=== PATIENT | female | born 1945 | race Two or more races ===

== ENCOUNTER 2022-09-28 16:38 | Inpatient (IN) | payer OTHER ==
[~2022-09-28] VITALS: Ht 157.5 cm; Wt 60.0 kg
[2022-09-28 17:36] VITALS: PULSE 52; O2SAT 95
[2022-09-28] MEDS ORDERED: hydrALAZINE HCL 20 MG/ML VL IV ONE (18:00)
[2022-09-28 18:31] LABS: Basophils # (auto) 0.1 10 ^3/uL (0-0.2); Basophils % (auto) 0.8 % (0.0-2.0); Eosinophils # (auto) 0 10 ^3/uL (0-0.8); Eosinophils % (auto) 0.1 % (0.0-7.0); Hematocrit 40.4 % (36.0-46.0); Hemoglobin 13.4 g/dL (12.2-16.2); Lymphocytes # (auto) 1.6 10 ^3/uL (0.4-5.4); Lymphocytes % (auto) 20.4 % (10.0-50.0); Mean Corpuscular Hemoglobin 31.8 pg (28.0-32.0); Mean Corpuscular Hgb Conc. 33.3 g/dL (32.0-36.0); Mean Corpuscular Volume 95.7 fL (80.0-100.0); Monocytes # (auto) 0.3 10 ^3/uL (0-1.3); Monocytes % (auto) 3.4 % (0.0-12.0); Neutrophils # (auto) 5.8 10 ^3/uL (1.6-8.6); Neutrophils % (auto) 75.3 % (37.0-80.0); Nucleated Red Blood Cells % 0.1 %; Red Blood Cells 4.22 10^6/uL (4.0-5.20); Red Cell Distribution Width 15.7 % (11.8-14.3); White Blood Cell 7.7 10^3/uL (4.4-10.8)
[2022-09-28 18:49] LABS: INR 1.04 (0.9-1.15); Prothrombin Time 10.9 sec (9.3-11.8)
[2022-09-28 18:51] LABS: Albumin 4.2 g/dL (3.4-5.0); Calcium 9.6 mg/dL (8.7-10.4); Magnesium 2.8 mg/dL (1.6-2.6); Potassium 3.8 mmol/L (3.5-5.1)
[2022-09-28 18:54] LABS: BUN/Creatinine Ratio 10.3 (10.0-20.0); Bilirubin, Total 0.5 mg/dL (0.2-1.0); Total Protein 8.1 g/dL (6.4-8.2)
[2022-09-28 19:13] LABS: Urine Bacteria FEW /hpf (None Seen); Urine Blood Negative /uL (Negative); Urine Clarity Clear (Clear); Urine Color Colorless (Yellow); Urine Hyaline Cast FEW /lpf (0 - 2); Urine Protein, UAD TRACE (Negative); Urine Specific Gravity 1.013 (1.001-1.035); Urine Urobilinogen Normal (Negative); Urine WBC <1 /hpf (0 - 5)
[2022-09-28] MEDS ORDERED: CALCIUM GLUC 1,000mg/50ml-NS 50 ML IV ONE ×2 (19:15)
[2022-09-28] MEDS ORDERED: GLUCAGON EMERG KIT 1mg/1ml IV ONE ×4 (19:15→21:15)
[2022-09-28 19:30] VITALS: PULSE 57; RESP 16; O2SAT 95
[2022-09-28 19:38] LABS: Cannabinoid Screen, Urine NEGATIVE (NEGATIVE)
[2022-09-28 19:43] LABS: Alcohol, Urine < 3.0 mg/dL (0-10); Amphetamine Screen, Urine NEGATIVE (NEGATIVE); Barbiturate Scree,Urine NEGATIVE (NEGATIVE); Benzodiazephine Screen, Urine NEGATIVE (NEGATIVE); Cocaine Screen, Urine NEGATIVE (NEGATIVE); Opiate Scree,Urine NEGATIVE (NEGATIVE); Phencyclidine Screen, Urine NEGATIVE (NEGATIVE)
[2022-09-28] MEDS ORDERED: NITROGLYCERIN 0.4 MG SL TAB SL PRN (20:30)
[2022-09-28] MEDS ORDERED: MORPHINE SULFATE INJ 2 MG/ml SYRG IV PRN (20:30)
[2022-09-28] MEDS ORDERED: ATEN25TA PO (22:05)
[2022-09-28] MEDS ORDERED: PRAV20TA3 PO (22:05)
[2022-09-28] MEDS ORDERED: TERA1CAP33 PO (22:05)
[2022-09-28] MEDS ORDERED: LISI40TA16 PO (22:05)
[2022-09-28] MEDS ORDERED: DOCUSATE SOD 100 MG CAP PO PRN (22:30)
[2022-09-28] MEDS ORDERED: cefTRIAXone 1GM/50ML D5W 50 ML IV ONE (22:30)
[2022-09-28] MEDS ORDERED: SODIUM CHLORIDE 0.9% 1,000 ML IV ONE (22:30)
[2022-09-28] MEDS: metroNIDAZOLE 500MG/100ML 100 ML IV SCH (23:51)
[2022-09-29] VITALS (19 sets, daily range): BP systolic 134–173; BP diastolic 59–95; PULSE 57–84; RESP 13–23; TEMP 97.7–98.4; O2SAT 94–99
[2022-09-29 00:35] LABS: Erythrocyte Sedimentation Rate 11 mm/hr (0-20)
[2022-09-29] MEDS ORDERED: hydrALAZINE HCL 20 MG/ML VL IV ONE (02:00)
[2022-09-29] MEDS: metroNIDAZOLE 500MG/100ML 100 ML IV SCH ×3 (05:32→22:07)
[2022-09-29 06:30] LABS: Basophils # (auto) 0 10 ^3/uL (0-0.2); Basophils % (auto) 0.4 % (0.0-2.0); Eosinophils # (auto) 0 10 ^3/uL (0-0.8); Eosinophils % (auto) 0.1 % (0.0-7.0); Hematocrit 39.1 % (36.0-46.0); Hemoglobin 13.1 g/dL (12.2-16.2); Lymphocytes % (auto) 11.1 % (10.0-50.0); Mean Corpuscular Hemoglobin 32.1 pg (28.0-32.0); Mean Corpuscular Hgb Conc. 33.6 g/dL (32.0-36.0); Mean Corpuscular Volume 95.5 fL (80.0-100.0); Monocytes # (auto) 0.3 10 ^3/uL (0-1.3); Monocytes % (auto) 3.4 % (0.0-12.0); Neutrophils # (auto) 7.5 10 ^3/uL (1.6-8.6); Nucleated Red Blood Cells % 0.1 %; Red Cell Distribution Width 15.5 % (11.8-14.3); White Blood Cell 8.8 10^3/uL (4.4-10.8)
[2022-09-29] MEDS: PANTOPRAZOLE 40 MG/10 ML VIAL INJ IV SCH (08:37)
[2022-09-29] MEDS: PRAVASTATIN SODIUM 20 MG TAB PO SCH (08:37)
[2022-09-29] MEDS: ENOXAPARIN SOD 40 MG/0.4 ML SYRINGE SC SCH (08:38)
[2022-09-29 09:00] LABS: Potassium 3.4 mmol/L (3.5-5.1)
[2022-09-29 09:11] LABS: Albumin 3.7 g/dL (3.4-5.0); BUN/Creatinine Ratio 12.4 (10.0-20.0); Bilirubin, Total 0.4 mg/dL (0.2-1.0); Calcium 9.4 mg/dL (8.7-10.4); Total Protein 7.2 g/dL (6.4-8.2)
[2022-09-29] MEDS ORDERED: FLEET ENEMA(ADULT) 135 ML PR ONE (10:00)
[2022-09-29] MEDS: hydrALAZINE HCL 20 MG/ML VL IV PRN ×2 (10:21→15:35)
[2022-09-29] MEDS ORDERED: LORazepam 2MG/ML-1ML VIAL IV ONE (14:00)
[2022-09-29] MEDS: LOSARTAN POTASSIUM 25 MG TAB PO SCH (14:15)
[2022-09-29] MEDS: D5W/SOD CHL 0.45%/KCL 20MEQ 1,000 ML IV SCH (14:15)
[2022-09-29] MEDS: cefTRIAXone 1GM/50ML D5W 50 ML IV SCH (21:11)
[2022-09-29 22:02] LABS: Folate (Folic Acid) 8.33 ng/mL (>5.38)
[2022-09-30] VITALS (20 sets, daily range): BP systolic 138–173; BP diastolic 61–110; PULSE 63–112; RESP 15–30; TEMP 97.9–100.1; O2SAT 75–100
[2022-09-30 05:16] LABS: Chloride 105 mmol/L (98-107); Sodium 137 mmol/L (136-145)
[2022-09-30 05:17] LABS: Calcium 8.7 mg/dL (8.5-10.1)
[2022-09-30 05:22] LABS: BUN/Creatinine Ratio 9.8 (10.0-20.0); Blood Urea Nitrogen 10 mg/dL (9-23); Glucose 116 mg/dL (74-106)
[2022-09-30 06:05] LABS: Potassium 2.9 mmol/L (3.5-5.1)
[2022-09-30] MEDS: metroNIDAZOLE 500MG/100ML 100 ML IV SCH ×3 (06:37→21:31)
[2022-09-30] MEDS: D5W/SOD CHL 0.45%/KCL 20MEQ 1,000 ML IV SCH (06:38)
[2022-09-30] MEDS: POTASSIUM CHL 20MEQ/100ML 100 ML IV SCH ×2 (07:51→10:00)
[2022-09-30] MEDS: PANTOPRAZOLE 40 MG/10 ML VIAL INJ IV SCH (08:22)
[2022-09-30] MEDS: PRAVASTATIN SODIUM 20 MG TAB PO SCH (08:23)
[2022-09-30] MEDS: ENOXAPARIN SOD 40 MG/0.4 ML SYRINGE SC SCH (08:23)
[2022-09-30] MEDS: LOSARTAN POTASSIUM 25 MG TAB PO SCH ×2 (08:23→12:40)
[2022-09-30] MEDS: hydrALAZINE HCL 20 MG/ML VL IV PRN ×3 (10:08→22:58)
[2022-09-30] MEDS ORDERED: METOPROLOL TARTRATE 25 MG TAB PO ONE (18:15)
[2022-09-30] MEDS ORDERED: ACETAMINOPHEN 325 MG TAB PO PRN (18:30)
[2022-09-30] MEDS: cefTRIAXone 1GM/50ML D5W 50 ML IV SCH (20:14)
[2022-09-30] MEDS: METOPROLOL TARTRATE 25 MG TAB PO SCH (21:29)
[2022-09-30] MEDS ORDERED: DONEPEZIL HYDROCHLORIDE 5 MG TAB PO SCH (22:00)
[2022-10-01] VITALS (7 sets, daily range): BP systolic 143–184; BP diastolic 66–103; PULSE 85–94; RESP 15–20; TEMP 98.2–99.5; O2SAT 95–98
[2022-10-01] MEDS: hydrALAZINE HCL 20 MG/ML VL IV PRN ×2 (04:32→13:18)
[2022-10-01] MEDS: metroNIDAZOLE 500MG/100ML 100 ML IV SCH ×2 (05:17→14:00)
[2022-10-01 08:36] LABS: Anion Gap 9.2 (5-15); Carbon Dioxide 22.8 mmol/L (20-30); Chloride 105 mmol/L (98-107); Sodium 137 mmol/L (136-145)
[2022-10-01 08:38] LABS: Calcium 8.9 mg/dL (8.5-10.1)
[2022-10-01 08:42] LABS: BUN/Creatinine Ratio 8.4 (10.0-20.0); Blood Urea Nitrogen 8 mg/dL (9-23); Glucose 101 mg/dL (74-106)
[2022-10-01] MEDS: PRAVASTATIN SODIUM 20 MG TAB PO SCH (08:53)
[2022-10-01] MEDS: LOSARTAN POTASSIUM 25 MG TAB PO SCH (08:54)
[2022-10-01] MEDS: ENOXAPARIN SOD 40 MG/0.4 ML SYRINGE SC SCH (08:54)
[2022-10-01] MEDS: METOPROLOL TARTRATE 25 MG TAB PO SCH (08:54)
[2022-10-01 08:57] LABS: Potassium 2.8 mmol/L (3.5-5.1)
[2022-10-01] MEDS ORDERED: POTASSIUM CHLORIDE 40 MEQ, LIDOCAINE 1% (LOCAL ANESTH.) 4 ML in SODIUM CHL 0.9% 250 ML IV ONE (09:30)
[2022-10-01] MEDS ORDERED: POTASSIUM EFFERVESENT TAB 25 MEQ PO ONE (09:30)
[2022-10-01] MEDS: MAGNESIUM SULFATE 1GM/100ML 100 ML IV SCH ×2 (10:00→11:00)
[2022-10-01] MEDS ORDERED: DONE5TAB80 PO (12:48)
[2022-10-01] MEDS ORDERED: MET25T PO (12:48)
[2022-10-01] MEDS ORDERED: CIPR500T4 PO (12:48)
[2022-10-01] MEDS ORDERED: LABETALOL HCL 5 MG/ML 4ML SYRINGE IV ONE (15:45)
== END 2022-10-01 20:03 | disposition home or self-care (01) | DRG 304 ==
LOC: EDBD 16:38 → ER 16:38 → TELE 20:22 → UNDOADMIN 20:22 → DOU IN ICU 09-29 02:25 → TELE 09-29 03:00 → DOU IN ICU 09-29 05:00 → TELE-WESTW 09-30 16:20 → TELE-E-ADS 09-30 19:10 → EAST 09-30 23:00 → DOU IN ICU 10-01 02:00 → TELE-E-ADS 10-01 02:02 → EAST 10-01 02:59
PROVIDERS: ADMIT Nurse Practitioner Family; ATTEND Nurse Practitioner Acute Care
DX: I16.9 Hypertensive crisis, unspecified (principal); G93.41 Metabolic encephalopathy; N39.0 Urinary tract infection, site not specified; E87.20 Acidosis, unspecified; N17.9 Acute kidney failure, unspecified; R00.1 Bradycardia, unspecified; G30.9 Alzheimer's disease, unspecified; E78.5 Hyperlipidemia, unspecified; K59.00 Constipation, unspecified; F02.80 Dementia in other diseases classified elsewhere, unspecified severity, without behavioral disturbance, psychotic disturbance, mood disturbance, and anxiety; R32 Unspecified urinary incontinence; R55 Syncope and collapse; I12.9 Hypertensive chronic kidney disease with stage 1 through stage 4 chronic kidney disease, or unspecified chronic kidney disease; N18.32 Chronic kidney disease, stage 3b; K52.9 Noninfective gastroenteritis and colitis, unspecified; Z79.899 Other long term (current) drug therapy; Z82.49 Family history of ischemic heart disease and other diseases of the circulatory system; Z90.710 Acquired absence of both cervix and uterus
CPT/HCPCS: 36415; 70450; 70551; 71045; 74176; 80048; 80053; 80307; 81001; 82140; 82607; 82746; 82962; 83036; 83605; 83735; 83880; 84132; 84443; 84484; 85025; 85610; 85652; 85730; 86141; 87040; 87081; 93005; 93306; 93886; 95819; 97110; 97116; 97163; 97530; C9113; G0378; J0696; J2001; J3480; J3490; J7060